=== PATIENT | female | born 1950 | race Caucasian/White ===

== ENCOUNTER 2017-04-10 11:56 | Emergency (ER) | payer OTHER ==
[~2017-04-10] VITALS: Ht 172.7 cm; Wt 72.1 kg
[~2017-04-10 11:56] MED LIST: BENTYL20 MG PO; CELEXA10 MG PO; CIPRO500 MG PO; CITALOPRAM HBR20 MG PO; FLAGYL500 MG PO; FLUTICASONE PRO16 GM BOTH NARES; NEXIUM40 MG PO
[2017-04-10 13:06] LABS: HEMATOCRIT 44.7 % (36.0-46.0); MCH 29.3 PG (29.0-34.0); MCHC 32.7 G/DL (30.0-36.0); MCV 89.8 FL (83-99); MEAN PLAT.VOLUME 10.1 uM^3 (9.5-12.4); PLATELET COUNT 296 K/uL (156-360); RBC DIS.WIDTH-CV 12.6 % (11.8-14.6); RBC DIS.WIDTH-SD 41.9 % (39-53); RED BLOOD COUNT 4.98 M/uL (3.80-5.20)
[2017-04-10 13:19] LABS: CHLORIDE 103 mEq/L (99-109); POTASSIUM 4.3 mEq/L (3.7-5.4); SODIUM 141 mEq/L (136-147)
[2017-04-10 13:21] LABS: GLUCOSE 93 mg/dL (70-99)
[2017-04-10 13:22] LABS: ANION GAP 10 MEQ/L (2-14)
[2017-04-10 13:25] LABS: GFR ESTIMATE (CALCULATED) > 59 mL/min/
[2017-04-10 13:26] LABS: UREA NITROGEN (BUN) 15 mg/dL (9-23)
[2017-04-10 13:29] LABS: TROP-I INTERPRETATION NEGATIVE; TROPONIN-I < 0.01 ng/mL (0.0-0.30)
[2017-04-10 17:13] LABS: TROP-I INTERPRETATION NEGATIVE; TROPONIN-I < 0.01 ng/mL (0.0-0.30)
[2017-04-10] MEDS ORDERED: OMEPRAZOLE40 M1 PO (17:59)
[2017-04-10 18:23] VITALS: BP 126/73
== END 2017-04-10 18:24 | disposition home or self-care (01) ==
LOC: EXP 11:56 → EME 11:56 → EXP 18:24
PROVIDERS: Physician Assistant
DX: R07.9 Chest pain, unspecified (principal); K21.9 Gastro-esophageal reflux disease without esophagitis; Z87.891 Personal history of nicotine dependence
CPT/HCPCS: 71020; 80048; 84484; 85027; 93005; 99281; 99284